=== PATIENT | female | born 1970 | race Caucasian/White ===

== ENCOUNTER → 2016-05-26 | Outpatient (CLI) | payer BC ==
[2016-05-27 09:39] VITALS: BP 148/88
== END ==
LOC: MHUC 19:31
PROVIDERS: ATTEND Physician Assistant Medical
DX: J02.0 Streptococcal pharyngitis (principal); J40 Bronchitis, not specified as acute or chronic; H61.22 Impacted cerumen, left ear
CPT/HCPCS: 99213